=== PATIENT | female | born 1985 | race Caucasian/White ===

== ENCOUNTER 2016-09-24 13:33 | Emergency (ER) | payer OTHER ==
[~2016-09-24] VITALS: Ht 157.5 cm; Wt 59.9 kg
[~2016-09-24 13:33] MED LIST: CYCL-319 PO; HYDR-3498 PO; HYDR-906 PO; NAPR-260 PO; PHEN-537 PO; POLY17PO6 PO; PRENATAL VIT; SULF1TAB31 PO
[2016-09-24 13:39] VITALS: Ht 157.5 cm; Wt 59.9 kg
[2016-09-24] MEDS ORDERED: KETOROLAC 30 MG INJ IM STA (14:56)
[2016-09-24 15:03] LABS: URINE BLOOD (Dip) POC Trace-intact (NEGATIVE)
[2016-09-24] MEDS ORDERED: IBUP-1542 PO (16:30)
[2016-09-24] MEDS ORDERED: HYDR-906 PO (16:30)
--- NOTE | 2016-09-24 18:41 | ERD ---
ER Documentation Chief Complaint Date/Time DATE: 09/24/16 TIME: 18:37 Chief Complaint back pain x 2 weeks HPI This is a 31-year-old female presents emergency department for lower back pain 2 weeks. Patient states she has chronic lower back pain that is intermittent. Patient states pain is sharp and radiates down bilateral legs causing bilateral hip pain. No recent injury or fall. Patient states she usually takes Tylenol and ibuprofen at home to relieve the pain however she continues to have pain. Patient states she was here about 6 months ago and received medicine that resolved her pain. No urinary or fecal incontinence. No saddle anesthesia. Patient remains neurovascularly intact. No loss of sensation, numbness or tingling. No fevers or chills. Denies abdominal pain, nausea, vomiting, diarrhea, dysuria or hematuria. ROS All systems reviewed and are negative except as per history of present illness. Medications Home Meds Active Scripts Ibuprofen* (Motrin*) 600 Mg Tab, 600 MG PO Q6, #15 TAB Prov:KRYSTAL CARVALHO NP 09/24/16 Hydrocodone/Acetaminophen ([place] 5-325 Tablet) 1 Each Tablet, 1 TAB PO Q6H Y for PAIN, #7 TAB Prov:KRYSTAL CARVALHO NP 09/24/16 Cyclobenzaprine Hcl* (Cyclobenzaprine Hcl*) 10 Mg Tablet, 10 MG PO TID, #15 TAB Prov:SONY SCHNEIDER PA-C 04/03/16 Naproxen* (Naprosyn*) 500 Mg Tablet, 500 MG PO BID Y for PAIN AND/OR INFLAMMATION, #30 TAB Prov:SONY SCHNEIDER PA-C 04/03/16 Hydrocodone/Acetaminophen ([place] 5-325 Tablet) 1 Each Tablet, 1 TAB PO Q6H Y for PAIN, #7 TAB Prov:SONY SCHNEIDER PA-C 04/03/16 Polyethylene Glycol* (Miralax*) 17 Gm Powd.pack, 17 GM PO DAILY for 28 Days Prov:ADELINA PAREDES NP 09/01/15 Cyclobenzaprine Hcl* (Cyclobenzaprine Hcl*) 10 Mg Tablet, 10 MG PO TID, #15 TAB Prov:ADELINA PAREDES NP 09/01/15 Hydrocodone Bit-Acetaminophen* ([place]*) 5-325 Mg Tab, 1 TAB PO Q6 Y for PAIN, # 7 TAB Prov:PAREDESADELINA I. PRODUCE RUNNER 09/01/15 Phenazopyridine Hcl* (Pyridium*) 100 Mg Tab, 100 MG PO TID Y for PAIN, #8 TAB Prov:PAREDESADELINA I. PRODUCE RUNNER 07/18/15 Sulfamethoxazole-Trimethoprim (Bactrim DS Tablet) 800-160 Mg Tab, 1 TAB PO BID, #3 TAB Prov:ADELINA PAREDES I. PRODUCE RUNNER 07/18/15 Reported Medications [ Vit] No Conflict Check 10/01/09 Allergies Allergies: Coded Allergies: No Known Allergies (Verified Allergy, Mild, 07/29/13) PMhx/Soc Medical and Surgical Hx: pt denies Medical Hx, pt denies Surgical Hx History of Surgery: No Anesthesia Reaction: No Hx Neurological Disorder: No Hx Respiratory Disorders: No Hx Cardiac Disorders: No Hx Psychiatric Problems: No Hx Miscellaneous Medical Probl: No Hx Alcohol Use: Yes (occasional) Hx Substance Use: No Hx Tobacco Use: No Smoking Status: Never smoker Physical Exam Vitals Vital Signs Date Time Temp Pulse Resp B/P Pulse Ox O2 Delivery O2 Flow Rate FiO2 09/24/16 13:39 98.1 59 18 114/58 99 Physical Exam Const: Alert, [id number] Head: Atraumatic Eyes: Normal Conjunctiva ENT: Normal External Ears, Nose and Mouth. Neck: Full range of motion..~ No meningismus. Resp: Clear to auscultation bilaterally Cardio: Regular rate and rhythm, no murmurs Abd: Soft, non tender, non distended. Normal bowel sounds Skin: No petechiae or rashes Back: No midline or flank tenderness. No CVA tenderness Ext: No cyanosis, or edema Neur: Awake and alert Psych: Normal Mood and Affect Results 24 hrs Laboratory Tests Test 09/24/16 15:01 Bedside Urine pH (LAB) 6.0 Bedside Urine Protein (LAB) Trace Bedside Urine Glucose (UA) Negative Bedside Urine Ketones (LAB) Negative Bedside Urine Blood Trace-intact Bedside Urine Nitrite (LAB) Negative Bedside Urine Leukocyte Esterase (L Negative Current Medications Medications (Trade) Dose Ordered Sig/Wiley Route PRN Reason Start Time Stop Time Status Last Admin Dose Admin Ketorolac Tromethamine (Toradol) 30 mg ONCE STAT IM 09/24/16 14:56 09/24/16 14:57 DC 09/24/16 15:06 Procedures/MDM ED COURSE: The patient was stable throughout ED course. I kept the patient and/or family informed of laboratory and diagnostic imaging results throughout the ED course. Laboratory Urine dip shows trace protein, trace blood Urine is negative MDM:31-year-old female presents emergency department for intermittent chronic lower back pain. Patient states she has had pain for about 2 weeks now. Patient originates lower back down bilateral legs. Physical exam is unremarkable. Patient walking without difficulty. No abnormal gait. Patient remains neurovascular intact. No loss of sensation, numbness or tingling. No urinary or fecal incontinence. Patient given Toradol on the ED and patient states pain has resolved. Remains stable and comfortable. Low suspicion for cauda equina, discitis, epidural abscess, UTI or pyelonephritis. Patient diagnosis is lower back pain, muscular skeletal. Patient is appropriate for outpatient management will be given prescription for ibuprofen and [place]. Instructed patient to follow-up with primary care provider in the next 24-48 hours for reassessment and additional management. Return to ED for any high fever, chest pain, difficulty breathing, shortness breath, wheezing, vomiting, diarrhea, abdominal pain or any new or worsening symptoms. Patient verbalizes understanding. All questions answered at discharge. Departure Diagnosis: Primary Impression: Back pain Back pain location: low back pain Chronicity: chronic Back pain laterality : bilateral Sciatica presence: with sciatica Sciatica laterality: bilateral sciatica Qualified Code: M54.42 - Chronic bilateral low back pain with bilateral sciatica Condition: Stable Patient Instructions: Back Pain (Acute Or Chronic), Back Pain W/ Sciatica [facility] Usted se brock hecho un examen mdico de control que le indica que no est en alta condicin que requiera tratamiento urgente en el Departamento de Emergencia. Un estudio ms profundo y el tratamiento de awad condicin pueden esperar sin ningn riesgo hasta que usted sea atendida/o en el consultorio de awad mdico o alta cl mireya. Es responsabilidad suya arreglar alta alessio para el seguimiento del asim. MANEJO DE CONDICIONES NO URGENTES EN EL FUTURO 1) Si usted tiene un mdico de atencin primaria: Usted debera llamar a awad mdico de atencin primaria antes de venir al departamento de emergencia. Despus de las horas de consultorio, awad doctor o awad asociado/a est disponible por telfono. El mdico o enfermero de gigi en el servicio telefnico puede asesorarle por jinny medio para atender el problema, o asim contrario se puede programar alta alessio. 2) Si usted no tiene un mdico de atencin primaria: Llame al mdico o clnica de referencia que aparece abajo sera las horas de consultorio para hacer alta alessio para que le vean. CLINICAS: [facility] [phone] [address] [facility] [phone] [address] [facility] [[email or web address]] [phone] [address] [facility] [phone] [address] [facility] [phone] [address] [phone] [address] [facility] [facility] () Usted se brock hecho un examen mdico de control que le indica que no est en alta condicin que requiera tratamiento urgente en el Departamento de Emergencia. Un estudio ms profundo y el tratamiento de awad condicin pueden esperar sin ningn riesgo hasta que usted sea atendida/o en el consultorio de awad mdico o alta cl mireya. Es responsabilidad suya arreglar alta alessio para el seguimiento del asim. MANEJO DE CONDICIONES NO URGENTES EN EL FUTURO 1) Si usted tiene un mdico de atencin primaria: Usted debera llamar a awad mdico de atencin primaria antes de venir al departamento de emergencia. Despus de las horas de consultorio, awad doctor o awad asociado/a est disponible por telfono. El mdico o enfermero de gigi en el servicio telefnico puede asesorarle por jinny medio para atender el problema, o asim contrario se puede programar alta alessio. 2) Si usted no tiene un mdico de atencin primaria: Llame al mdico o condado institucions de referencia que aparece abajo sera las horas de consultorio para hacer alta alessio para que le vean. SI USTED NO PUEDE PAGAR PARA ABDULKADIR UN MEDICO puede ir a: [facility] [address] [place] [address] [facility] [address] [place] [address] [facility] [address] [place] [address] [facility] [address] [place] [place], [place] [id number] Additional Instructions: Llame al doctor MAANA y catie alta ALESSIO PARA DENTRO DE 2-3 MAGANA.Dgale a la secretaria que nosotros le instruimos hacer esta alessio.Avise o llame si awad condicin se empeora antes de la alessio. Regresa aqui si peor o no mejor. Return to ED for any high fever, chest pain, difficulty breathing, shortness breath, wheezing, vomiting, diarrhea, abdominal pain or any new or worsening symptoms. KRYSTAL CARVALHO NP Sep 24, 2016 18:41
== END 2016-09-24 16:40 | disposition home or self-care (01) ==
LOC: FTE 13:33
DX: M54.42 Lumbago with sciatica, left side (principal); M54.41 Lumbago with sciatica, right side
CPT/HCPCS: 81003; J1885; 96372

== ENCOUNTER 2016-10-08 17:43 | Emergency (ER) | payer OTHER ==
[~2016-10-08] VITALS: Ht 157.5 cm; Wt 60.0 kg
[~2016-10-08 17:43] MED LIST changes: +IBUP-1542 PO
[2016-10-08 17:50] VITALS: Ht 157.5 cm; Wt 60.0 kg
--- NOTE | 2016-10-08 20:04 | ERD ---
ER Documentation Chief Complaint Date/Time DATE: 10/08/16 TIME: 20:04 Chief Complaint Pt with lower back pain that radiates to B lower extremity. HPI Patient is a 31-year-old female who presents to the ED with chronic back pain. She states that she was here 2 weeks ago with similar pain. She states that she has seen a chiropractor but does not see improvement in her symptoms. She states that she is not taking any medication for her symptoms. She states that today the pain is located in the same area but she feels a curvature to the spine. She denies bowel or bladder incontinence. Denies fever or chills. Denies numbness or tingling. She denies chest pain, cough, shortness of breath or difficulty breathing. Denies abdominal pain, nausea, vomiting or diarrhea. Denies headache or dizziness. Denies dysuria urgency or hematuria. Denies any new onset trauma. No other complaints. ROS All systems reviewed and are negative except as per history of present illness. Medications Home Meds Active Scripts Naproxen* (Naprosyn*) 500 Mg Tablet, 500 MG PO BID Y for PAIN AND/OR INFLAMMATION, #30 TAB Prov:SHARON MANLEY PA-C 10/08/16 Ibuprofen* (Motrin*) 600 Mg Tab, 600 MG PO Q6, #15 TAB Prov:KRYSTAL CARVALHO NP 09/24/16 Hydrocodone/Acetaminophen ([place] 5-325 Tablet) 1 Each Tablet, 1 TAB PO Q6H Y for PAIN, #7 TAB Prov:KRYSTAL CARVALHO NP 09/24/16 Cyclobenzaprine Hcl* (Cyclobenzaprine Hcl*) 10 Mg Tablet, 10 MG PO TID, #15 TAB Prov:SONY SCHNEIDER PA-C 04/03/16 Naproxen* (Naprosyn*) 500 Mg Tablet, 500 MG PO BID Y for PAIN AND/OR INFLAMMATION, #30 TAB Prov:SONY SCHNEIDER PA-C 04/03/16 Hydrocodone/Acetaminophen ([place] 5-325 Tablet) 1 Each Tablet, 1 TAB PO Q6H Y for PAIN, #7 TAB Prov:SONY SCHNEIDER PA-C 04/03/16 Polyethylene Glycol* (Miralax*) 17 Gm Powd.pack, 17 GM PO DAILY for 28 Days Prov:ADELINA PAREDES I. FURNACE MECHANIC HELPER 09/01/15 Cyclobenzaprine Hcl* (Cyclobenzaprine Hcl*) 10 Mg Tablet, 10 MG PO TID, #15 TAB Prov:ADELINA PAREDES I. FURNACE MECHANIC HELPER 09/01/15 Hydrocodone Bit-Acetaminophen* ([place]*) 5-325 Mg Tab, 1 TAB PO Q6 Y for PAIN, # 7 TAB Prov:ADELINA PAREDES I. FURNACE MECHANIC HELPER 09/01/15 Phenazopyridine Hcl* (Pyridium*) 100 Mg Tab, 100 MG PO TID Y for PAIN, #8 TAB Prov:ADELINA PAREDES I. FURNACE MECHANIC HELPER 07/18/15 Sulfamethoxazole-Trimethoprim (Bactrim DS Tablet) 800-160 Mg Tab, 1 TAB PO BID, #3 TAB Prov:ADELINA PAREDES I. FURNACE MECHANIC HELPER 07/18/15 Reported Medications [ Vit] No Conflict Check 10/01/09 Allergies Allergies: Coded Allergies: No Known Allergies (Verified Allergy, Mild, 07/29/13) PMhx/Soc Medical and Surgical Hx: pt denies Surgical Hx History of Surgery: No Anesthesia Reaction: No Hx Neurological Disorder: No Hx Respiratory Disorders: No Hx Cardiac Disorders: No Hx Psychiatric Problems: No Hx Miscellaneous Medical Probl: Yes (Chronic back pain) Hx Alcohol Use: Yes (occasional) Hx Substance Use: No Hx Tobacco Use: No Smoking Status: Never smoker FmHx Family History: No coronary disease, No diabetes, No other Physical Exam Vitals Vital Signs Date Time Temp Pulse Resp B/P Pulse Ox O2 Delivery O2 Flow Rate FiO2 10/08/16 17:50 97.6 94 20 125/75 98 Physical Exam GENERAL: Well-developed, well-nourished female. Appears in no acute distress. LUNG: Clear to auscultation bilaterally. No rhonchi, wheezing, rales or coarse breath sounds. HEART: Regular rate and rhythm. No murmurs, rubs or gallops. ABDOMEN: No scars, ecchymosis or rashes noted. Soft, nontender, and nondistended. Positive bowel sounds in all four quadrants. No rebound tenderness , no guarding. (-) McBurneys point tenderness. No CVA tenderness. BACK: No midline tenderness. No spinal or paraspinal tenderness. Pain with bending. Limited range of motion. No step-offs or deformities. No open wounds or laceration. Extremities: Equal pulses bilaterally. No peripheral clubbing, cyanosis or edema. No unilateral leg swelling. NEUROLOGIC: Alert and oriented. Moving all four extremities. 5/5 strength in all extremities. Normal speech. Steady gait. SKIN: Normal color. Warm and dry. No rashes or lesions. Capillary refill < 2 seconds Results 24 hrs Current Medications Medications (Trade) Dose Ordered Sig/Wiley Route PRN Reason Start Time Stop Time Status Last Admin Dose Admin Ketorolac Tromethamine (Toradol) 15 mg ONCE STAT IM 10/08/16 20:33 10/08/16 20:34 DC 10/08/16 20:46 Procedures/MDM ER COURSE: I kept the patient and/or family informed of laboratory and diagnostic imaging results throughout the emergency room course. IMAGING STUDIES [place] [address] Radiology Main Line: [phone] DIAGNOSTIC IMAGING REPORT Patient: JENY FERNANDEZ : 1985 Age: 31 Sex: F MR #: [id number] DOS: 10/08/16 1830 Ordering MD: SHARON MANLEY PA-C Location: [facility] Room/Bed: PROCEDURE: XR Lumbar Spine. CLINICAL INDICATION: Back pain. TECHNIQUE: Three views. AP, lateral and cone-down lateral view of the lumbar spine were obtained. COMPARISON: No prior studies are available for comparison. FINDINGS: There is normal stature and alignment of the vertebrae. There is no fracture. There is no lytic or blastic lesion. The disk height is normal. The paravertebral soft tissues are unremarkable. IMPRESSION: 1. Unremarkable images of the lumbar spine. RPTAT: QQ .Juan Carlos Reese MD, MD Date Time Electronically viewed and signed by .Juan Carlos Reese MD, on 10/08/2016 20:25 .R/ CC: SHARON MANLEY PA-C MEDICATIONS Toradol 50 mg IM. Tolerated with no adverse reaction. Negative test. MEDICAL DECISION MAKING: This is a 31-year-old female who presents with chronic back pain. Vital signs were reviewed. Patient is afebrile. Patient is not hypoxic. Patient is not toxic or ill-appearing. Patient likely has chronic back pain of unknown etiology, muscle strain versus muscle sprain. X-rays of by radiologist unremarkable. Low suspicion for cauda equine syndrome, spinal epidural hematoma , spinal epidural abscess, osteomyelitis, fracture, aortic dissection, AAA, pyelonephritis, nephrolithiasis, septic stone, obstructed stone. DISCHARGE: At this time, patient is stable for discharge and outpatient management with no new complaints during the ER course. Patient was sent home with copy of imaging report and Naprosyn for pain. Advised patient to follow-up with her primary care doctor to follow-up with the work station support specialist.. Patient will be discharged home with instructions to recheck for new or worsening symptoms such as fever, nausea, weakness, LOC and to follow up with primary care in the next 1 -2 days. Patient was advised to return to the ER for any new or worsening symptoms. Plan was discussed and patient and/or family understands and agrees. Home instructions were given. Departure Diagnosis: Primary Impression: Back pain Back pain location: low back pain Chronicity: chronic Back pain laterality : left Sciatica presence: with sciatica Sciatica laterality: sciatica laterality unspecified Qualified Code: M54.40 - Chronic left-sided low back pain with sciatica, sciatica laterality unspecified Condition: Stable SHARON MANLEY PA-C Oct 08, 2016 20:04
--- NOTE | 2016-10-08 20:26 | RADRPT ---
PROCEDURE: XR Lumbar Spine. CLINICAL INDICATION: Back pain. TECHNIQUE: Three views. AP, lateral and cone-down lateral view of the lumbar spine were obtained. COMPARISON: No prior studies are available for comparison. FINDINGS: There is normal stature and alignment of the vertebrae. There is no fracture. There is no lytic or blastic lesion. The disk height is normal. The paravertebral soft tissues are unremarkable. IMPRESSION: 1. Unremarkable images of the lumbar spine. RPTAT: QQ .Juan Carlos Reese MD, Date Time Electronically viewed and signed by .Juan Carlos Reese MD, on 10/08/2016 20:25 .R/
[2016-10-08] MEDS ORDERED: KETOROLAC 15 MG INJ IM STA (20:33)
[2016-10-08] MEDS ORDERED: NAPR-260 PO (20:34)
== END 2016-10-08 20:50 | disposition home or self-care (01) ==
LOC: FTE 17:43
DX: M54.40 Lumbago with sciatica, unspecified side (principal)
CPT/HCPCS: 72100; J1885; 96372

== ENCOUNTER 2017-10-31 04:34 | Emergency (ER) | END 2017-10-31 09:40 | disposition home or self-care (01) ==

== ENCOUNTER 2018-10-09 02:05 | Emergency (ER) | payer OTHER ==
[~2018-10-09] VITALS: Ht 162.6 cm; Wt 63.0 kg
[~2018-10-09 02:05] MED LIST changes: +CIPR500T4 PO; -CYCL-319 PO; -HYDR-3498 PO; -HYDR-906 PO; -IBUP-1542 PO; -NAPR-260 PO; +NAPR-985 PO; +ONDA4TAB8 PO; -PHEN-537 PO; -POLY17PO6 PO; -PRENATAL VIT; -SULF1TAB31 PO
[2018-10-09 02:10] VITALS: Ht 162.6 cm; Wt 63.0 kg
[2018-10-09] MEDS ORDERED: IBUP-1542 PO (03:20)
[2018-10-09] MEDS ORDERED: AMOX500C2 PO (03:20)
[2018-10-09] MEDS ORDERED: D-ME473S2 PO (03:21)
--- NOTE | 2018-10-09 03:23 | ERD ---
ER Documentation Chief Complaint Chief Complaint Sore throat and cough x1 week HPI Patient is a 33-year-old female presents the ER for concern of throat pain and cough times 1 week. Patient's cough is dry in nature. Patient denies fevers. Patient states she been taking Robitussin with minimal alleviation of symptoms. Patient has no nausea, vomiting, abdominal pain, diarrhea. Patient has no chest pain or shortness of breath. No recent travel. No sick contacts. ROS All systems reviewed and are negative except as per history of present illness. Medications Home Meds Active Scripts Dextromethorphan Hb-Promethazine Hcl* (Promethazine DM* Syrup) 473 Ml Syrup, 5 ML PO Q6 PRN for COUGH, #4 OZ Prov:YOLIE FONSECA PA-C 10/09/18 Amoxicillin* (Amoxicillin*) 500 Mg Cap, 500 MG PO BID for 7 Days, CAP Prov:YOLIE FONSECA PA-C 10/09/18 Ibuprofen* (Motrin*) 600 Mg Tab, 600 MG PO Q6, #30 TAB Prov:YOLIE FONSECA PA-C 10/09/18 Naproxen* (Naprosyn*) 500 Mg Tablet, 500 MG PO BID PRN for PAIN AND/OR INFLAMMATION, #30 TAB take with food Prov:MARY CARMEN HUNG PA-C 11/14/17 Ciprofloxacin Hcl* (Ciprofloxacin Hcl*) 500 Mg Tablet, 500 MG PO BID for 5 Days, TAB Prov:MARGARITO RHODES MD 10/31/17 Ondansetron Hcl* (Zofran*) 4 Mg Tablet, 4 MG PO Q6H for NAUSEA AND/OR VOMITING, #12 TAB Prov:MARGARITO RHODES MD 10/31/17 Allergies Allergies: Coded Allergies: No Known Allergies (Verified Allergy, Mild, 10/09/18) PMhx/Soc Medical and Surgical Hx: pt denies Medical Hx, pt denies Surgical Hx History of Surgery: No Anesthesia Reaction: No Hx Neurological Disorder: No Hx Respiratory Disorders: No Hx Cardiac Disorders: No Hx Psychiatric Problems: No Hx Miscellaneous Medical Probl: Yes (Chronic back pain) Hx Alcohol Use: No Hx Substance Use: No Hx Tobacco Use: No Smoking Status: Never smoker FmHx Family History: No diabetes Physical Exam Vitals Vital Signs Date Temp Pulse Resp B/P (MAP) Pulse Ox O2 O2 Flow FiO2 Time Delivery Rate 10/09/18 98.0 79 20 113/57 97 02:10 (75) Physical Exam GENERAL: Well-developed, well-nourished female. Appears in no acute distress. HEAD: Normocephalic, atraumatic. No deformities or ecchymosis. EYE: Pupils equal, round, and reactive to light. EOMs intact. No conjunctival erythema. No eye discharge. ENT: External ear without any masses or tenderness. Auditory canals clear bilaterally. TM visualized bilaterally, non-erythematous, non-bulging. Nasal mucosa pink with no discharge. Oropharynx is erythematous with 1+ tonsillar enlargement bilaterally. No exudates noted. No uvula deviation. No kissing tonsils. NECK: Supple. No meningismus. Normal ROM of the neck. LUNG: Clear to auscultation bilaterally. No rhonchi, wheezing, rales or coarse breath sounds. HEART: Regular rate and rhythm. No murmurs, rubs or gallops. EXTREMITES: Equal pulses bilaterally. No peripheral clubbing, cyanosis or edema. No unilateral leg swelling. NEUROLOGIC: Alert and oriented to person, place and time. Moving all four extremities. 5/5 strength in all extremities. Normal speech. Steady gait. SKIN: Normal color. Warm and dry. No rashes or lesions. Procedures/MDM MEDICAL DECISION MAKING: This is a 33-year-old female with no past medical history presents the ER for concerns of cough and sore throat times 1 week.. Vital signs were reviewed. Patient was afebrile. Patient was not hypoxic. Trial of antibiotic will be given as patient has had symptoms for 1 week now. Low suspicion for mononucleosis, pneumonia, meningitis, sinusitis, otitis externa, acute otitis media, epiglottitis or peritonsillar abscess. Patient was nontoxic, [id number] prior to discharge. PRESCRIPTIONS: Ibuprofen, promethazine cough syrup, amoxicillin DISCHARGE: At this time, patient is stable for discharge and outpatient management. Supportive therapies such as OTC throat lozenges, salt water gurgles, popsicles and jello discussed. I have instructed the patient to follow-up with his/her primary care physician in 1-2 days. I have instructed the patient to promptly return to the ER for any new or worsening symptoms including increased pain, swelling, fever, nausea, vomiting, weakness or difficulty breathing. The patient and/or family expressed understanding of and agreement with this plan. All questions were answered. Home care instructions were provided. Disclaimer: Inadvertent spelling and grammatical errors are likely due to EHR/dictation software use and do not reflect on the overall quality of patient care. Also, please note that the electronic time recorded on this note does not necessarily reflect the actual time of the patient encounter. Departure Diagnosis: Primary Impression: Pharyngitis Pharyngitis/tonsillitis etiology: unspecified etiology Qualified Codes: J02.9 - Acute pharyngitis, unspecified Condition: Stable Patient Instructions: Pharyngitis, Strep (Presumed) Additional Instructions: Llame al doctor MAANA y catie alta ALESSIO PARA DENTRO DE 1-2 MAGANA.Dgale a la secretaria que nosotros le instruimos hacer esta alessio.Avise o llame si awad condicin se empeora antes de la alessio. Regresa aqui si peor o no mejor. YOLIE FONSECA PA-C Oct 09, 2018 03:23
[2018-10-09 03:38] VITALS: BP 120/72; PULSE 71; RESP 18
== END 2018-10-09 03:41 | disposition home or self-care (01) ==
LOC: FTE 02:05
DX: J02.9 Acute pharyngitis, unspecified (principal)
CPT/HCPCS: 99283